=== PATIENT | male | born 2000 | race Caucasian/White ===

== ENCOUNTER 2022-10-13 15:30 | Outpatient (CLI) | payer OTHER ==
[2022-10-13 22:44] LABS: CHLAMYDIA TRACHOMATIS DNA NEGATIVE (NEGATIVE); NEISSERIA GONORRHOEAE DNA NEGATIVE (NEGATIVE); TRICHOMONAS VAGINALIS DNA NEGATIVE (NEGATIVE)
== END 2022-10-13 15:45 | disposition home or self-care (01) ==
LOC: LAB.N 15:30
PROVIDERS: ATTEND Registered Nurse
DX: R31.9 Hematuria, unspecified (principal); R30.0 Dysuria; N48.9 Disorder of penis, unspecified
CPT/HCPCS: 87086; 87491; 87591; 87661

== ENCOUNTER 2022-10-15 08:00 | Outpatient (CLI) | payer OTHER ==
[2022-10-15 21:52] LABS: CHLAMYDIA TRACHOMATIS DNA NEGATIVE (NEGATIVE); NEISSERIA GONORRHOEAE DNA NEGATIVE (NEGATIVE); TRICHOMONAS VAGINALIS DNA NEGATIVE (NEGATIVE)
== END 2022-10-15 23:59 | disposition home or self-care (01) ==
LOC: LAB.N 08:00
PROVIDERS: ATTEND Emergency Medicine
DX: R30.0 Dysuria (principal)
CPT/HCPCS: 87086; 87491; 87591; 87661